=== PATIENT | female | born 1995 | race Hispanic/Latino ===

== ENCOUNTER 2019-07-08 22:53 | Emergency (ER) | payer OTHER ==
[~2019-07-08] VITALS: Ht 170.2 cm; Wt 72.6 kg
--- OUTSIDE RECORDS SUMMARY | 2019-07-08 22:55 | XMS REPORT ---
Author [facility] Address Unknown Phone Unavailable Care Team Providers Care [employer] Operator Name Role Phone Unavailable Unavailable Payers Payer Name Policy Type Policy Number Effective Date Expiration Date Problems This patient has no known problems. Allergies, Adverse Reactions, Alerts Allergy Name Allergy Type Status Severity Reaction(s) Onset Date Inactive Date Treating Clinician Comments No Known Allergies DA Active U 2019-04-05 00:00:00 No Known Allergies DA Active U 2019-03-26 00:00:00 Medications This patient has no known medications. Results Test Description Test Time Test Comments Text Results Atomic Results Result Comments PLACENTA THIRD TRIMESTER 2019-04-09 17:51:00 RUN DATE: 04/10/19 [facility] PAGE 1 RUN TIME: 1202 Specimen Inquiry RUN USER: INTERFACE PATIENT: TANVI BUSTILLOS LOC: JESSICA U #: [id number] AGE/SX: ROOM: [facility] RE04/05/19REG DR: Chinedu Lynn MD : 89 BED: A DIS: 04/08/19 STATUS: DIS IN TLOC: SPEC #: [id number] RECD: 04/06/19 STATUS: ESPERANZA DAVIS #: [id number] GISSELLE: 04/06/19- SUBM DR: Chinedu Lynn MD ENTERED: 04/08/19-752 SP TYPE: PLACIII OTHR DR: ORDERED: LEVEL V SURGICA CODES: [id number] - PLACENTA, NOS PROCEDURES: LEVEL V SURGICA (Incomplete) TISSUES: PLACENTA, NOS - PLACENTA CLINICAL HISTORY 24 year old, IUP @ 40.0 weeks, vaginal delivery, GDM - diet controlled (wpd) FINAL DIAGNOSIS Placenta, delivery: - placenta with third trimester morphology (530 gms), mean placental weight at 40 weeks - 537 gms - mural fibrin deposition present in chorionic stem blood vessels (see comment) - uneven villous maturation with multifocal increase in the syncytial knots, suggestive of hypoperfusion - trivascular umbilical cord and membranes - free of inflammation - focal mild chronic deciduitis COMMENT: The presence of mural fibrin deposition present in the subchorionic blood vessels is a nonspecific finding but could be seen as a component of vascular malperfusion. vascular malperfusion can be associated with intrauterine growth restriction, poor outcome, demise, and neural developmental sequelae. vascular malperfusion is the most recent term applied to a group of placental lesions indicating reduced or absent perfusion of the villous parenchyma by the fetus. The most common etiology of malperfusion is umbilical cord obstruction leading to stasis, ischemia and in some cases thrombosis. Other contributing factors may include maternal diabetes, cardiac insufficiency, or hyperviscosity and inherited or acquired thrombophilias. The presence of increased syncytial knots is a nonspecific finding by itself but could be seen as a component of maternal vascular malperfusion. Pathologic features of uteroplacental malperfusion can be seen in maternal conditions with a component of vascular disease (preeclampsia, hypertension, diabetes mellitus, and autoimmunity). There can be an increased risk for recurrence in future pregnancies. CONTINUED ON NEXT PAGE RUN DATE: 04/10/19 [facility] PAGE 2 RUN TIME: 1202 Specimen Inquiry RUN USER: INTERFACE SPEC #: [id number] PATIENT: TRESSAFABIANOSNOW #[id number] (Continued) FINAL DIAGNOSIS (Continued) CPT code(s): 30081 [facility]/akmala 04/09/19 GROSS DESCRIPTION The specimen was received in a container, labeled with the patient's name, unit number and designated "placenta". The following attributes are observed: Cord insertion: 3 cm from margin Cord length: 47 cm Number of vessels: 3 Cord color: Rivera Other cord findings: Slightly edematous; less than 12 twists per 10 cm surface findings: Steel blue, wrinkled, glistening with focal subchorionic fibrin deposition and focal green discoloration Vasculature: Displays unremarkable blood vasculature Membranes rupture site: 3 cm to margin Membrane color: Rivera Other membrane findings: Thickened The trimmed placental weight: 530 gm Disk measurement: 18.0 x 16.0 x 3.0 cm in greatest dimension Accessory lobes: None Maternal surface: Lobulated and intact Parenchyma: Red, beefy, and spongy with peripheral fibrosis Parenchyma lesions: None Cassettes: A1 through A4 /kamala 04/08/19 MICROSCOPIC DESCRIPTION The placenta is composed of small vascular villi alternating with a population of larger more cellular villi. Multifocal increase in the syncytial knots is present. The trivascular umbilical cord and membranes are free of inflammation. A few chorionic stem blood vessels contain foci of mural fibrin deposition and one of these areas appears calcified. jadon/kamala 04/09/19 Signed Olivia Hunt 04/09/19 175 END OF REPORT HGB HCT 2019-04-07 05:33:00 HEMOGLOBIN (test code=HGB) 9.7 g/dL 10.7-13.9 HEMATOCRIT (test code=HCT) 29.8 % 32.1-42.1 [id number] 10:38:00* Test Item Value Reference Range Comments GLUBED (test code=GLUBED) 96 mg/dL 65-110 AG HEPATITIS B [id number] 20:01:00* Test Item Value Reference Range Comments AG HEPATITIS B SURFACE (test code=HBSAG) NONREACTIVE NONREACTIVE AB HEPATITIS C [id number] 20:01:00* Test Item Value Reference Range Comments AB HEPATITIS C (test code=HCVAB) NONREACTIVE NONREACTIVE SIGNAL TO CUTOFF (test code=CUTOFF) 0.13 <0.80 AB [id number] 20:01:00* Test Item Value Reference Range Comments AB TREPONEMA (test code=TREPAB) NONREACTIVE NONREACTIVE AG HEPATITIS B [id number] 19:42:00* Test Item Value Reference Range Comments AG HEPATITIS B SURFACE (test code=HBSAG) NONREACTIVE NONREACTIVE AB HEPATITIS C [id number] 19:42:00* Test Item Value Reference Range Comments AB HEPATITIS C (test code=HCVAB) NONREACTIVE SIGNAL TO CUTOFF (test code=CUTOFF) <0.80 AB [id number] 19:42:00* Test Item Value Reference Range Comments AB TREPONEMA (test code=TREPAB) NONREACTIVE NONREACTIVE CBC W/AUTO [id number] 19:15:00* Test Item Value Reference Range Comments WHITE BLOOD CELL (test code=WBC) 6.4 K/mm3 6.6-12.1 RED BLOOD CELL (test code=RBC) 3.40 M/mm3 3.45-5.01 HEMOGLOBIN (test code=HGB) 10.7 g/dL 10.7-13.9 HEMATOCRIT (test code=HCT) 32.7 % 32.1-42.1 MEAN CELL VOLUME (test code=MCV) 96 fL 84.1-94.8 MEAN CELL HGB (test code=MCH) 31.5 pg 27-35 MEAN CELL HGB CONCETRATION (test code=MCHC) 32.7 gm/dL 32.2-34.1 RED CELL DISTRIBUTION WIDTH (test code=RDW) 14.3 % 12.4-16.5 PLATELET COUNT (test code=PLT) 175 K/mm3 133-385 IMMATURE PLATELET FRACTION (test code=IPF) 0.0 % 0.0-10.8 MEAN PLATELET VOLUME (test code=MPV) 11.6 fl 9.1-12.7 NEUTROPHIL % (test code=NT%) 71.4 % 56.5-79.4 LYMPHOCYTE % (test code=LY%) 16.5 % 14.3-34.3 MONOCYTE % (test code=MO%) 8.0 % 5.1-10.4 EOSINOPHIL % (test code=EO%) 1.7 % 0.1-3.0 BASOPHIL % (test code=BA%) 0.5 % 0.1-1.0 NEUTROPHIL # (test code=NT#) 4.5 K/mm3 LYMPHOCYTE # (test code=LY#) 1.1 K/mm3 MONOCYTE # (test code=MO#) 0.5 K/mm3 EOSINOPHIL # (test code=EO#) 0.11 K/mm3 BASOPHIL # (test code=BA#) 0.0 K/mm3 RBC MORPHOLOGY REQUIRED (test code=RBCM) NORMAL NORMAL PLATELET MORPHOLOGY REQUIRED (test code=PLTMR) NORMAL NORMAL [id number] 19:08:00* Test Item Value Reference Range Comments GLUCOSE (test code=GLU) 70 mg/dL 65-110 URINALYSIS W/O [id number] 19:06:00* Test Item Value Reference Range Comments UA GLUCOSE DIPSTICK (test code=DGLUU) NEGATIVE NEGATIVE UA KETONE DIPSTICK (test code=KETU) NEGATIVE NEGATIVE UA PROTEIN DIPSTICK (test code=PROU) NEGATIVE NEGATIVE Comments to Mixing Supervisor: IN ROOMIS NURSE PERFORMING TEST? N- US PREG UT [id number] 15:05:00 Patient Name: TANVI BUSTILLOS Unit No: [id number] EXAMS: CPT CODE: [id number] US PREG UT TRANSVAGINAL [address] [facility] [address] [place], [place] [address] OBSTETRICAL ULTRASOUND REPORT Pat. Name: TANVI BUSTILLOS Pat. No: [id number] Study Date: 11/28/2018 1:56pm , Age: 12 1995, 23 Pregnancies: 1, Para 0000 LMP: 06/26/2018 GA by LMP: 22w1d GA by US: 21w6d GA Selected: 21w4d (From Known E) BERTA: 04/06/2019 Referring MD: Chinedu Lynn Topper Packer: Cindy Shankar RDMS CPT4: USPRUTTRVG Admitting MD: Chinedu Lynn Hist/Ind: SCAN#1 ANATOMY MEASUREMENTS AGE GROWTH EVALUATION Measurement GA Range Srce %for GA Ratios ----- ---- ------- BPD 5.3 cm 22w1d (99p8g-61y8c) Hadl BPD 68% FL/BPD 0.74 HC 20.1 cm 22w1d (69o2r-60s0x) Hadl HC 66% FL/AC 0.24 APD 5.5 cm APD HC/AC 1.22 (1.05 - 1.24) TAD 5.0 cm TAD CI 0.76 (0.70 - 0.86) AC 16.5 cm 21w2d (39g5c-60j7g) Hadl AC 44% FL 3.9 cm 22w1d (92u1q-26s0y) Hadl FL 62% HL 3.9 cm 23w6d (09n5e-35z9e) Otilio HL 88% GA for sonogram 21w6d (03w8w-69j8i) Weight Estimate: based on (BPD,HC,AC,FL) Hadlock Weight: 470 gm (401-538) Hadlock : 1lbs, 0oz Normal: 450 gm (303-894) Rafael Wt% 52% for 21.6 wks Cervical Length: 3.5 cm Heart Rate: 142 bpm CLINICAL SUMMARY Type of Gestation: Richards Intrauterine in vertex presentation. size is appropriate for gestational age. growth: Consistent with normal growth motion and organs s een: heart motion seen body and limb movements seen Four chamber heart observed Left ventricular outflow tract (LVOT) seen Right ventricular outflow tract (RVOT) seen Normal intracrani al anatomy seen Umbilical cord insertion in fetus seen stomach , Renal Fossa, Bladder and Spine seen [facility] NAME: TANVI BUSTILLOS Radiology Department PHY S: Chinedu Lantigua MD [address] : 05/1994 AGE: 23 SEX: F [place], [place] [address] [id number] LOC: ManishRAD PHONE #: [phone] EXAM DATE: 019 STATUS: DEP CLI FAX #: [phone] RAD NO: Pag e 1 Signed Report (CONTINUED) Patient Nam e: TANVI BUSTILLOS Unit No: [id number] EXAMS: CPT CODE: [id number] US [facility] UT TRANSVA GINAL [address] <Continued> Three vessel umbilical cord noted abnormalities observed: None seen at this exam Placental location: Posterior Placental maturity : Grade 1 There is no evidence of placenta previa. Amniotic fluid volume is normal. Uterus and adnexa: No significant abnormality is seen. Thank you for allowing us to participate in the care of this patient. Kandace Gipson M.D. Electronic Signature 11/28/2018 03:05pm at 1505 Reported and signed by: Kandace Gipson MD CC: Chinedu Lynn MD Technologist: Cindy Shankar [facility] Probe: [id number] Trnscrbd D/ (1505) t.[facility] Orig Print D/T: S: 11/30/2018 (0848) [facility] NAME: [facility] Rad[facility] Department PHYS: Chinedu Dyson MD [address] : 1995 AGE: 23 SEX: F [place] [address] LOC: ManishRAD PHONE #: [phone] EXAM DATE: 11/28/2018 STATUS: DEP CLI FAX #: [phone] RAD NO: Page 2 Signed Report Patient Name: TANVI BUSTILLOS Unit No: [id number] EXAMS: CPT CODE: [id number] US PREG UT TRANSVAGINAL [address] <Continued> [facility] NAME: TANVI BUSTILLOS Radiology Department PHYS: Chinedu Lantigua MD [address] : 1995 AGE: 23 SEX: F [place] [address] LOC: ManishRAD PHONE #: [phone] EXAM DATE: 11/28/2018 STATUS: TWIN CLI FAX #: [phone] RAD NO: Page 3 Signed Report - US PREG AFTER [id number] 15:05:00 Patient Name: TANVI BUSTILLOS Unit No: [id number] EXAMS: CPT CODE: [id number] US PREG AFTER 1ST TRI [address] [address] [facility] [address] [place], [place] [address] OBSTETRICAL ULTRASOUND REPORT Pat. Name: TANVI BUSTILLOS Pat. N o: [id number] Study Date: 11/28/2018 1:56pm , Age: 12 1995, 23 Pregnancies: 1, Para 0000 LMP: 06/26/2018 GA by LMP: 22w1d GA by US: 21w6d GA Selected: 21w4d (From Known E) BERTA: Referring MD: CHINEDU LYNN Topper Packer: Cindy Shankar RDMS CPT4 : PNTVPUT8C Admitting MD: CHINEDU LYNN Hist/Ind: SCAN#1 ANATOMY ------- MEASUREMENTS AGE GROWTH EVALUATION Measureme nt GA Range Srce %for GA Ratios ----- ---- ------- BPD 5.3 cm 22w1d (60m9g-13d9k) Hadl BPD 68% FL/BPD 0.74 HC 20.1 cm 22w1d (56h8c-48n9x) Hadl HC 66% FL/AC 0.24 APD 5.5 cm APD HC/AC 1.22 (1.05 - 1.24) TAD 5.0 cm TAD CI 0.76 (0.70 - 0.86) AC 16.5 cm 21w2d (19w2d- 23w2d) Hadl AC 44% FL 3.9 cm 22w1d (04p7k-00h0z) Hadl FL 62% HL 3.9 cm 23w6d (73n7b-85n8i) Otilio HL 88% GA for sonogram 21w6d (40r1y-93k7u) Gerald ght Estimate: based on (BPD,HC,AC,FL) Hadlock Weight: 470 gm (401-538) Had lock : 1lbs, 0oz Normal: 450 gm (303-894) Rafael Wt% 52% for 21.6 wks Cervical Length: 3.5 cm Heart Rate: 142 bpm CLINICAL SUMMARY Type of Gestation: Richards Intrauterine in vertex presentation. size is appropriate for gestational age. growth: Consistent with normal growth motion and organs se en: heart motion seen body and limb movements seen Four chamber heart observed Left ventricular outflow tract (LVOT) s een Right ventricular outflow tract (RVOT) seen Normal intracrania l anatomy seen Umbilical cord insertion in fetus seen stomach, Renal Fossa, Bladder and Spine seen [facility] NAME: TANVI BUSTILLOS Radiology Department PHYS: Chinedu Lantigua MD [address] : 05/1994 AGE: 23 SEX: F [place], [place] [id number] LOC: F.RAD PHONE #: [phone] EXAM DATE: 11/29/19 STATUS: REG CLI FAX #: [phone] RAD NO: Page 1 Signed Report (CONTINUED) Patient Name: TANVI BUSTILLOS Unit No: [id number] EXAMS: CPT CODE: [id number] US PREG AFTER 1ST TRI 31188 <Continued> Three vessel umbilical cord noted abnormalities observed: None seen at this exam Placental location: Posterior Placental maturity : Grade 1 There is no evidence of placenta previa. Amniotic fluid volume is normal. Uterus and adnexa: No significant abnormality is seen. Thank you for allowing us to participate in the care of this patient. Kandace Gipson M.D. Electronic Signature 11/28/2018 03:05pm at 1505 Reported and signed by: Kandace Gipson MD CC: Chinedu Lynn MD Technologist: Cindy Shankar RDMS Probe: Trnscrbd D/ (3695) t.[facility] Orig Print D/T: S: 11/28/2018 (7199) [facility] NAME: JUAREZ BUSTILLOS [facility] Radiology Department PHYS: Chinedu Dyson MD [address] : 1995 AGE: 23 SEX: F [place] [address] LOC: ManishRAD PHONE #: [phone] EXAM DATE: 11/28/2018 STATUS: REG CLI FAX #: [phone] RAD NO: Page 2 Signed Report Patient Name: TANVI BUSTILLOS Unit No: [id number] EXAMS: CPT CODE: [id number] US PREG AFTER 1ST TRI 13394 <Continued> [facility] NAME: TANVI BUSTILLOS Radiology Department PHYS: Chinedu Lantigua MD [address] : 1995 AGE: 23 SEX: F [place] [address] LOC: Ricardo.RAD PHONE #: [phone] EXAM DATE: 11/28/2018 STATUS: REG CLI FAX #: [phone] RAD NO: Page 3 Signed Report
[2019-07-08] MEDS ORDERED: PANTOPRAZOLE 40 MG 10ML VIAL IV STA (23:00)
[2019-07-08] MEDS ORDERED: DICYCLOMINE HCL 20 MG/2 ML VIAL IM ONE (23:00)
[2019-07-08] MEDS ORDERED: SODIUM CHLORIDE 0.9% 1000ML 1,000 ML IV SCH (23:00)
[2019-07-08 23:20] LABS: BASOPHILS % 0.3 % (0.0-1.0); EOSINOPHILS % 0.4 % (0.0-6.0); HEMATOCRIT 37.9 % (34.2-44.1); HEMOGLOBIN 12.9 g/dL (12.0-16.0); LYMPHOCYTES # (AUTO) 0.6 (1.0-3.2); LYMPHOCYTES % 7.8 % (18.0-39.1); MEAN CORPUSCULAR VOLUME 91.1 fL (81-99); MONOCYTES # (AUTO) 0.4 (0.2-0.8); MONOCYTES % 4.7 % (4.4-11.3); NEUTROPHILS # (AUTO) 6.7 (2.1-6.9); NEUTROPHILS % 86.5 % (38.7-80.0); PLATELET COUNT 243 x10e3/uL (140-360); RED BLOOD COUNT 4.16 x10e6/uL (3.6-5.1); RED CELL DISTRIBUTION WIDTH 12.4 % (11.7-14.4)
[2019-07-08 23:22] LABS: COLOR,URINE YELLOW (YELLOW); PREGNANCY TEST, URINE NEGATIVE (NEGATIVE)
[2019-07-08 23:23] LABS: BILIRUBIN,URINE 1+ (NEGATIVE); CLARITY,URINE CLOUDY (CLEAR); KETONES,URINE 2+ (NEGATIVE); LEUKOCYTE ESTERASE ,URINE 1+ (NEGATIVE); NITRITE,URINE NEGATIVE (NEGATIVE); PROTEIN,URINE DIPSTICK NEGATIVE (NEGATIVE); URINE UROBILINOGEN 0.2 mg/dL (0.2 - 1)
[2019-07-08 23:30] LABS: BACTERIA,URINE MANY /HPF; EPITHELIAL CELLS,URINE MODERATE /LPF; MUCUS,URINE MODERATE (RARE); WBC,URINE (MAN) >50 /HPF (0-5)
[2019-07-08 23:39] LABS: AMYLASE 74 U/L (25-125); LIPASE 25 U/L (8-78)
[2019-07-08 23:42] LABS: ALANINE AMINOTRANSFERASE 17 IU/L (0-55); ALBUMIN 4.1 g/dL (3.5-5.0); ALBUMIN/GLOBULIN RATIO 1.3 (0.8-2.0); ALKALINE PHOSPHATASE 44 IU/L (40-150); ANION GAP 15.1 mmol/L (8-16); BLOOD UREA NITROGEN 9 mg/dL (7-26); BUN/CREATININE RATIO 12 (6-25); CALCIUM 9.7 mg/dL (8.4-10.2); CARBON DIOXIDE 23 mmol/L (22-29); CHLORIDE 106 mmol/L (98-107); CREATININE, SERUM 0.74 mg/dL (0.57-1.11); EST GLOMERULAR FILTRATION RATE > 60 ML/MIN (60-); GLUCOSE 94 mg/dL (74-118); POTASSIUM 4.1 mmol/L (3.5-5.1); SODIUM 140 mmol/L (136-145)
[2019-07-08 23:49] VITALS: BP 115/73
[2019-07-09] MEDS ORDERED: CEFTRIAXONE SOD 1 GM/NS 50 ML 50 ML IV ONE
== END 2019-07-09 00:28 | disposition home or self-care (01) ==
LOC: ER 22:53
DX: R10.13 Epigastric pain (principal); R11.2 Nausea with vomiting, unspecified; N30.90 Cystitis, unspecified without hematuria
CPT/HCPCS: 36415; 80053; 81001; 81025; 82150; 83690; 85025; 99284; C9113; J0500; J0696; J7030